=== PATIENT | male | born 1985 | race Two or more races ===

== ENCOUNTER 2021-09-01 07:09 | Emergency (ER) | payer BC ==
[2021-09-01 07:39] VITALS: TEMP 97.7; BMI 26.6
[2021-09-01] MEDS ORDERED: IBUPROFEN 600 MG TABLET (FP) PO ONE ×2 (08:59→09:20)
[2021-09-01] MEDS ORDERED: ACETAMINOPHEN 325 MG TABLET (FP) PO ONE (08:59)
[2021-09-01] MEDS ORDERED: ACETAMINOPHEN 325 MG TABLET (FP) ONE (09:20)
[2021-09-01 11:06] LABS: BASO % 0.4 % (0-2.0); EOS % 1.7 % (0-4.5); HEMATOCRIT 43.8 % (35.4-49); HEMOGLOBIN 15.1 GM/dL (11.7-16.9); LYMPH % 29.1 % (8-40); MCH 30.7 pg (25.7-33.7); MCHC 34.6 g/dl (32.0-35.9); MEAN CELL VOLUME 88.7 fl (80-96); MEAN PLT VOLUME 9.1 fl (7.5-11.1); NEUT % 61.8 % (42.8-82.8); PLATELET COUNT 149 10^3/uL (134-434); RBC 4.94 M/mm3 (4.00-5.60); RDW 13.6 % (11.9-15.9); WHITE BLOOD COUNT 5.3 K/mm3 (4.0-10.0)
[2021-09-01 11:31] LABS: CALCIUM 8.8 mg/dL (8.5-10.1)
[2021-09-01 11:32] LABS: ALBUMIN 3.8 g/dl (3.4-5.0); BLOOD UREA NITROGEN 12.4 mg/dL (7-18)
[2021-09-01 11:36] LABS: BILIRUBIN,TOTAL 0.3 mg/dL (0.2-1); TOT PROT 7.4 g/dl (6.4-8.2)
[2021-09-01 13:18] VITALS: BP 130/76; PULSE 72
== END 2021-09-01 13:30 | disposition home or self-care (01) ==
LOC: JER 07:09
DX: J06.9 Acute upper respiratory infection, unspecified (principal)
CPT/HCPCS: 36415; 71045-TC-FY; 80053; 85025; 85379; 93005; 93010; 99285-25; C9803; U0003; U0005